=== PATIENT | male | born 1970 | race African-American/Black ===

== ENCOUNTER 2022-02-14 15:24 | Observation (INO) ==
[2022-02-14 16:28] LABS: Basophils % 0.7 %; Eosinophils # 0.2 K/mcL (0.0-0.6); Eosinophils % 3.2 %; Hematocrit 41.8 % (37.5-50.1); Hemoglobin 13.7 g/dL (12.9-16.9); Immature Granulocytes % 0.2 % (0-4); Lymphocytes # 2.7 K/mcL (0.6-4.6); Lymphocytes % 48.3 %; Mean Corpuscular HGB Conc 32.8 g/dL (31.6-35.5); Mean Corpuscular Hemoglobin 29.7 pg (28.0-33.3); Mean Corpuscular Volume 90.5 fL (83.0-100.0); Mean Platelet Volume 10.9 fL (9.4-12.4); Monocytes # 0.6 K/mcL (0.0-1.3); Monocytes % 9.9 %; Neutrophils # 2.1 K/mcL (1.6-8.9); Platelet Count 208 K/mcL (140-400); Red Blood Count 4.62 M/mcL (4.19-5.50); Red Cell Distribution Width 15.6 % (11.5-14.5); Segmented Neutrophils % 37.7 %; White Blood Count 5.6 K/mcL (4.3-11.1)
[2022-02-14 16:38] LABS: INR 1.2; Prothrombin Time 13.4 Seconds (9.4-12.1)
[2022-02-14 16:40] LABS: Activated Partial Thrombo Time 33.5 Seconds (26.0-36.0)
[2022-02-14 16:47] LABS: BUN/Creatinine Ratio 17 (6-26); Blood Urea Nitrogen 17 mg/dL (6-20); Calcium 8.7 mg/dL (8.6-10.3); Carbon Dioxide 25 mEq/L (23-29); Chloride 107 mEq/L (98-107); Glucose 125 mg/dL (70-105); Osmolality,Calculated 291 (280-300); Potassium 3.8 mEq/L (3.5-5.1); Sodium 139 mEq/L (136-145); Troponin I 0.03 ng/mL (< 0.04); eGFR For African Americans > 60 (> 60); eGFR For Non-African Americans > 60 (> 60)
[2022-02-14 17:00] LABS: Thyroid Stimulating Hormone 1.773 mcIU/mL (0.340-5.600)
[2022-02-14] MEDS ORDERED: Naloxone 0.4 MG/ML INJ IVP PRN (18:29)
[2022-02-14] MEDS ORDERED: Ondansetron 4 MG/2 ML VIAL IVP PRN (18:29)
[2022-02-14] MEDS ORDERED: Acetaminophen 325 MG TABLET PO PRN (18:29)
[2022-02-14] MEDS ORDERED: *HR* Dextrose 50 % in Water (Syg) 50 ML SYRINGE IVP PRN (19:23)
[2022-02-14] MEDS ORDERED: Dextrose Gel 15 GM/37.5 ML TUBE PO PRN ×2 (19:23)
[2022-02-14] MEDS ORDERED: D5% in Water 1,000 ML IVC PRN (19:23)
[2022-02-14] MEDS ORDERED: hydrOXYzine pamoate 25 MG CAPSULE PO PRN (20:38)
[2022-02-14] MEDS: Apixaban 5 MG TABLET PO SCH (20:57)
[2022-02-14] MEDS ORDERED: Insulin LISPRO 300 UNITS/3 ML VIAL SUBQ SCH (21:00)
[2022-02-15 05:32] LABS: Basophils # 0.1 K/mcL (0.0-0.2); Basophils % 1.2 %; Eosinophils # 0.2 K/mcL (0.0-0.6); Eosinophils % 3.2 %; Hematocrit 42.6 % (37.5-50.1); Hemoglobin 13.6 g/dL (12.9-16.9); Immature Granulocytes % 0.2 % (0-4); Lymphocytes # 2.9 K/mcL (0.6-4.6); Lymphocytes % 58.2 %; Mean Corpuscular HGB Conc 31.9 g/dL (31.6-35.5); Mean Corpuscular Hemoglobin 28.9 pg (28.0-33.3); Mean Corpuscular Volume 90.6 fL (83.0-100.0); Mean Platelet Volume 11.5 fL (9.4-12.4); Monocytes # 0.4 K/mcL (0.0-1.3); Monocytes % 7.9 %; Neutrophils # 1.5 K/mcL (1.6-8.9); Platelet Count 214 K/mcL (140-400); Red Cell Distribution Width 15.3 % (11.5-14.5); Segmented Neutrophils % 29.3 %
[2022-02-15 05:50] LABS: Magnesium 1.9 mg/dL (1.6-2.6); Phosphorous 3.5 mg/dL (2.7-4.5)
[2022-02-15 05:52] LABS: Troponin I 0.04 ng/mL (< 0.04)
[2022-02-15 06:59] VITALS: BP 143/95; PULSE 88; TEMP 98.5; O2SAT 97
[2022-02-15] MEDS ORDERED: Insulin LISPRO 300 UNITS/3 ML VIAL SUBQ SCH (07:30)
[2022-02-15 07:40] LABS: BUN/Creatinine Ratio 12 (6-26); Blood Urea Nitrogen 12 mg/dL (6-20); Calcium 8.6 mg/dL (8.6-10.3); Carbon Dioxide 23 mEq/L (23-29); Chloride 109 mEq/L (98-107); Glucose 101 mg/dL (70-105); Osmolality,Calculated 290 (280-300); Potassium 3.6 mEq/L (3.5-5.1); Sodium 140 mEq/L (136-145); eGFR For African Americans > 60 (> 60); eGFR For Non-African Americans > 60 (> 60)
[2022-02-15] MEDS: Apixaban 5 MG TABLET PO SCH (07:45)
[2022-02-15] MEDS ORDERED: DilTIAZem CD (24hr) 120 MG CAP.ER.24H PO SCH (09:15)
[2022-02-15 10:16] LABS: Influenza A PCR Negative (Negative); Influenza B PCR Negative (Negative); Resp. Syncytial Virus PCR Negative (Negative)
[2022-02-15 10:17] LABS: SARS-CoV-2 by PCR (In House) Negative (Negative)
== END 2022-02-15 11:24 ==
LOC: EMEROOARM 15:24 → 3BNU 15:24 → SUATTDRO 18:37 → 3BNU 19:34
PROVIDERS: ADMIT Internal Medicine; ATTEND Nurse Practitioner